=== PATIENT | male | born 1935 | race Caucasian/White ===

== ENCOUNTER 2018-01-12 14:46 | Emergency (ER) | payer MEDICARE ==
[2018-01-12 17:20] VITALS: BP 130/76
--- NOTE | 2018-01-12 17:24 | UC ---
Skin Complaint HPI - HPI Summary HPI Summary: Started w 4 days of pain, itching on L side. Developed small scabs,blisters a few days ago. Denies fever. - History of Current Complaint Chief Complaint: UCSkin Time Seen by Provider: 01/12/18 17:15 Stated Complaint: SKIN CONCERN Hx Obtained From: Patient Onset/Duration: Gradual Onset - 4 days Pain Intensity: 3 Pain Scale Used: 0-10 Numeric Aggravating Factor(s): Clothing Alleviating Factor(s): Nothing - Allergy/Home Medications Allergies/Adverse Reactions: Allergies Allergy/AdvReac Type Severity Reaction Status Date / Time brimonidine Allergy Unknown Unknown Verified 01/12/18 17:21 Reaction Details Sulfa (Sulfonamide Allergy Unknown Unknown Verified 01/12/18 17:21 Antibiotics) Reaction Details Home Medications: Home Medications Cetirizine HCl [All Day Allergy] 10 mg PO DAILY 01/12/18 [History Confirmed ] Latanoprost/Pf [Latanoprost 0.005% Eye Drop] 7.5 ml OP DAILY 01/12/18 [History Confirmed 01/12/18] Losartan TAB* [Cozaar TAB*] 25 mg PO DAILY 01/12/18 [History Confirmed 01/12/18] Simvastatin [Zocor] 20 mg PO DAILY 01/12/18 [History Confirmed 01/12/18] Tamsulosin CAP* [Flomax CAP*] 0.4 mg PO DAILY 01/12/18 [History Confirmed ] raNITIdine HCl [Ranitidine HCl] 150 mg PO DAILY 01/12/18 [History Confirmed ] Review of Systems All Other Systems Reviewed And Are Negative: Yes Constitutional: Positive: Negative Skin: Positive: Rash Respiratory: Positive: Negative Cardiovascular: Positive: Negative PMH/Surg Hx/FS Hx/Imm Hx - Surgical History Surgical History: None - Social History Alcohol Use: Occasionally Substance Use Type: None Smoking Status (MU): Former Smoker Physical Exam Triage Information Reviewed: Yes Appearance: Well-Appearing, No Pain Distress Vital Signs: Initial Vital Signs Temp 98.3 F 01/12/18 17:15 Pulse 57 01/12/18 17:15 Resp 16 01/12/18 17:15 BP 130/76 01/12/18 17:15 Pulse Ox 97 01/12/18 17:15 Vital Signs Reviewed: Yes Skin: Positive: Rashes - L side of ribs, dermatomal rash, no crossing of midline Course/Dx - Course Course Of Treatment: Rash starting a few days ago along dermatomal line. No crossing of midline, afebrile. symptoms >72hrs, no antiviral. topical pain treatment or tylenol ok to take. - Differential Diagnoses - Skin Complaint Differential Diagnoses: Cellulitis, Contact Dermatitis, Impetigo, Poison Latoya, Scabies, Varicella Zoster - Diagnoses Provider Diagnoses: SHINGLES Discharge - Sign-Out/Discharge Documenting (check all that apply): Patient Departure All imaging exams completed and their final reports reviewed: No Studies - Discharge Plan Condition: Good Disposition: HOME Prescriptions: Lidocaine 2% JELLY* 1 applic TOPICAL TID #1 tube Patient Education Materials: Shingles (ED) Referrals: Gomez Hi MD [Primary Care Provider] - Additional Instructions: yOU DO HAVE SHINGLES. You can take tylenol for pain or the topical lidocaine i have prescribed. please return if there are any new symptoms. - Billing Disposition and Condition Condition: GOOD Disposition: Home
== END 2018-01-12 17:54 | disposition home or self-care (01) ==
LOC: UCCORT 14:46
DX: B02.9 Zoster without complications (principal); Z16.30 Resistance to unspecified antimicrobial drugs; Z88.1 Allergy status to other antibiotic agents; Z88.8 Allergy status to other drugs, medicaments and biological substances; Z87.891 Personal history of nicotine dependence
CPT/HCPCS: 99202; G0463

== ENCOUNTER 2018-04-06 08:21 | Emergency (ER) | payer BC, MEDICARE ==
[2018-04-06 08:46] VITALS: BP 137/71
--- NOTE | 2018-04-06 09:28 | UC ---
Truncal Trauma HPI - HPI Summary HPI Summary: right side ribs pain x 4 days s/p fall on ice 4 days ago , injury to his right bis very painful , increase pain with movement and coughing no sob , no chest pain , - History Of Current Complaint Chief Complaint: UCBackPain Stated Complaint: S/P FALL (TUE) UPPER BACK RT SIDE PAIN Time Seen by Provider: 04/06/18 08:48 Hx Obtained From: Patient Onset/Duration: Sudden Onset, Lasting Days - 4, Still Present Onset Of Pain: Immediate Severity Initially: Severe Severity Currently: Severe Pain Intensity: 6 Mechanism Of Injury: Blunt Trauma, Fall From A Standing Position Aggravating Factor(s): Movement, Deep Breathing, Cough Alleviating factor(s): Nothing Associated Signs And Symptoms: Negative: SOB, Chest Pain, Cough, Hematuria, Abdominal Pain, Fever, Nausea, Vomiting - Allergies/Home Medications Allergies/Adverse Reactions: Allergies Allergy/AdvReac Type Severity Reaction Status Date / Time brimonidine Allergy Unknown Unknown Verified 04/06/18 08:42 Reaction Details Sulfa (Sulfonamide Allergy Unknown Unknown Verified 04/06/18 08:42 Antibiotics) Reaction Details Home Medications: Home Medications Acetaminophen [Tylenol Extra Strength] 500 mg PO Q6HR PRN 04/06/18 [History Confirmed 04/06/18] Cyclobenzaprine TAB* [Flexeril 10 MG TAB*] 5 mg PO BID PRN 04/06/18 [History Confirmed 04/06/18] Ergocalciferol (Vitamin D2) [Vitamin D2] 50,000 unit PO WEEKLY 04/06/18 [ History Confirmed 04/06/18] PMH/Surg Hx/FS Hx/Imm Hx - Additional Past Medical History Additional PMH: high cholesterol, GERD, enlarged prostate, glaucoma Cardiovascular History: Hypertension - Surgical History Surgical History: Yes Surgery Procedure, Year, and Place: hernia repairs - Family History Known Family History: Positive: Hypertension - Social History Alcohol Use: Rare Substance Use Type: None Smoking Status (MU): Former Smoker Review of Systems All Other Systems Reviewed And Are Negative: Yes Constitutional: Positive: Negative Skin: Positive: Negative Eyes: Positive: Negative ENT: Positive: Negative Respiratory: Positive: Negative Is Patient Immunocompromised?: No Physical Exam Triage Information Reviewed: Yes Appearance: Well-Nourished, Pain Distress Vital Signs: Initial Vital Signs Temp 98.5 F 04/06/18 08:42 Pulse 89 04/06/18 08:42 Resp 17 04/06/18 08:42 BP 137/71 04/06/18 08:42 Pulse Ox 97 04/06/18 08:42 Vital Signs Reviewed: Yes Eyes: Positive: Conjunctiva Clear ENT: Positive: Normal ENT inspection, Hearing grossly normal, Pharynx normal Neck exam: Normal Neck: Positive: Supple, Nontender, No Lymphadenopathy Respiratory: Positive: Chest non-tender, Lungs clear, Normal breath sounds Cardiovascular: Positive: RRR, No Murmur, Pulses Normal Abdominal Exam: Normal Abdomen Description: Positive: Nontender, Soft. Negative: CVA Tenderness (R), CVA Tenderness (L), Distended, Guarding Bowel Sounds: Positive: Present Musculoskeletal: Positive: Other: - tenderness right lower posterior ribs Diagnostics - Laboratory Diagnostic Studies Completed/Ordered: xray right ribs: + fracture right 10 rib Truncal Trauma Course/Dx - Differential Dx/Diagnosis Provider Diagnosis: Fracture, rib Discharge - Sign-Out/Discharge Documenting (check all that apply): Patient Departure All imaging exams completed and their final reports reviewed: Yes - Discharge Plan Condition: Stable Disposition: HOME Prescriptions: Cyclobenzaprine TAB* [Flexeril 10 MG TAB*] 10 mg PO BID PRN #20 tab PRN Reason: Pain Patient Education Materials: Rib Fracture (ED) Referrals: Gomez Hi MD [Primary Care Provider] - 7 Days - Billing Disposition and Condition Condition: STABLE Disposition: Home
== END 2018-04-06 09:26 | disposition home or self-care (01) ==
LOC: UCCORT 08:21
DX: S22.31XA Fracture of one rib, right side, initial encounter for closed fracture (principal); W19.XXXA Unspecified fall, initial encounter; E78.00 Pure hypercholesterolemia, unspecified; K21.9 Gastro-esophageal reflux disease without esophagitis; I10 Essential (primary) hypertension; Z87.891 Personal history of nicotine dependence
CPT/HCPCS: 99212; G0463

== ENCOUNTER 2019-04-22 13:52 | Emergency (ER) | payer BC, MEDICARE ==
[2019-04-22 14:20] VITALS: BP 176/77
--- NOTE | 2019-04-22 14:52 | UC ---
Back Pain HPI - HPI Summary HPI Summary: 83 yo male presents here concerned he has sciatic pain onset after he started doing straight leg raises > 3 weeks ago Pain primarily in right buttock and radiates down posterior leg to knee Initially well controlled with tylenol about three days ago he tried to do straight leg raises again and his pain markedly worsened hurts to walk and use started no bowel dysfunction some urinary incontinence due to turp no f/c - History of Current Complaint Chief Complaint: UCLowerExtremity Stated Complaint: RT SIDE LEG PAIN<SCIATIC> Time Seen by Provider: 04/22/19 14:16 Hx Obtained From: Patient Onset/Duration: Gradual Onset, Lasting Weeks - 3, Worse Since - x 3 days Timing: Constant Severity Initially: Mild Severity Currently: Moderate Pain Intensity: 7 Pain Scale Used: 0-10 Numeric Back Pain: Is Discrete @ - right buttock, Radiates To - right knee Character: Spasmodic, Burning Aggravating Factor(s): Walking - stairs Alleviating Factor(s): Rest Associated Signs And Symptoms: Positive: Negative - Allergies/Home Medications Allergies/Adverse Reactions: Allergies Allergy/AdvReac Type Severity Reaction Status Date / Time brimonidine Allergy Unknown Unknown Verified 04/22/19 14:12 Reaction Details Sulfa (Sulfonamide Allergy Unknown Unknown Verified 04/22/19 14:12 Antibiotics) Reaction Details Home Medications: Home Medications Cetirizine HCl [All Day Allergy] 10 mg PO DAILY 01/12/18 [History Confirmed 04/11] Latanoprost/Pf [Latanoprost 0.005% Eye Drop] 7.5 ml OP DAILY 01/12/18 [History Confirmed 04/22/19] Losartan TAB* [Cozaar TAB*] 100 mg PO DAILY 01/12/18 [History Confirmed 04/22/19 ] raNITIdine HCL [Ranitidine HCl] 150 mg PO DAILY 01/12/18 [History Confirmed 04/11] Acetaminophen [Tylenol Extra Strength] 1,000 mg PO Q6HR PRN 04/06/18 [History Confirmed 04/06/18] Ergocalciferol (Vitamin D2) [Vitamin D2] 50,000 unit PO WEEKLY 04/06/18 [ History Confirmed 04/22/19] Cyclobenzaprine (NF) [Cyclobenzaprine 5 MG (NF)] 5 mg PO TID PRN #21 tab [Rx] PMH/Surg Hx/FS Hx/Imm Hx Previously Healthy: Yes Endocrine History: Dyslipidemia Cardiovascular History: Hypertension - Surgical History Surgical History: Yes Surgery Procedure, Year, and Place: hernia repairs. prostate "roto rooter" - Family History Known Family History: Positive: Hypertension - Social History Alcohol Use: Rare Substance Use Type: None Smoking Status (MU): Former Smoker Review of Systems All Other Systems Reviewed And Are Negative: Yes Constitutional: Positive: Negative Skin: Positive: Negative Eyes: Positive: Negative ENT: Positive: Negative Respiratory: Positive: Negative Cardiovascular: Positive: Negative Gastrointestinal: Positive: Negative Genitourinary: Positive: Negative Motor: Positive: Negative Neurovascular: Positive: Negative Musculoskeletal: Positive: Negative Neurological/Mental Status: Positive: Negative Psychological: Positive: Negative Physical Exam Triage Information Reviewed: Yes Appearance: Well-Appearing, No Pain Distress, Well-Nourished Vital Signs: Initial Vital Signs Temp 97.7 F 04/22/19 14:13 Pulse 71 04/22/19 14:13 Resp 15 04/22/19 14:13 BP 176/77 04/22/19 14:13 Pulse Ox 95 04/22/19 14:13 Vital Signs Reviewed: Yes Eyes: Positive: Conjunctiva Clear ENT: Positive: Hearing grossly normal. Negative: Nasal congestion, Nasal drainage, Tonsillar exudate, Muffled voice, Hoarse voice, Dental tenderness Dental Exam: Normal Neck: Positive: Supple, Nontender, No Lymphadenopathy Respiratory: Positive: Lungs clear, Normal breath sounds, No respiratory distress, No accessory muscle use Cardiovascular: Positive: RRR, No Murmur Abdomen Description: Positive: Nontender, No Organomegaly. Negative: Bruit, CVA Tenderness (R), CVA Tenderness (L) Bowel Sounds: Positive: Present Musculoskeletal: Positive: ROM Intact, No Edema Neurological: Positive: Alert Psychological Exam: Normal Skin Exam: Normal Diagnostics - Radiology No standard instances Radiology Interpretation Completed By: Radiologist Summary of Radiographic Findings: IMPRESSION: Degenerative disc disease at L5- S1. Calculi overlying the lower pole of the left kidney. Back Pain Course/Dx - Differential Dx/Diagnosis Provider Diagnosis: Degenerative disc disease at L5-S1 level, Sciatica, right side Discharge ED - Sign-Out/Discharge Documenting (check all that apply): Patient Departure All imaging exams completed and their final reports reviewed: Yes - Discharge Plan Condition: Stable Disposition: HOME Prescriptions: Cyclobenzaprine (NF) [Cyclobenzaprine 5 MG (NF)] 5 mg PO TID PRN #21 tab PRN Reason: Spasms - Back Patient Education Materials: Sciatica (ED) Referrals: Gomez Hi MD [Primary Care Provider] - 4 Days (recent in i 4-10 days) Additional Instructions: continue tylenol stop doing straight leg raises - Billing Disposition and Condition Condition: STABLE Disposition: Home
== END 2019-04-22 15:33 | disposition home or self-care (01) ==
LOC: UCCORT 13:52
DX: M51.37 Other intervertebral disc degeneration, lumbosacral region (principal); M54.31 Sciatica, right side; I10 Essential (primary) hypertension; Z79.899 Other long term (current) drug therapy; Z87.891 Personal history of nicotine dependence; Z88.8 Allergy status to other drugs, medicaments and biological substances; Z88.2 Allergy status to sulfonamides
CPT/HCPCS: 72110; 99212; G0463